=== PATIENT | female | born 1985 | race Caucasian/White ===

== ENCOUNTER 2020-04-06 16:57 | Outpatient (CLI) | payer OTHER, SELFPAY ==
[2020-04-06 18:38] LABS: Beta HCG Quantitative < 2.39 mIU/ML
== END 2020-04-06 16:58 | disposition home or self-care (01) ==
LOC: ANHLAB 16:59
PROVIDERS: Visit Provider Obstetrics & Gynecology
DX: N92.6 Irregular menstruation, unspecified (principal)
CPT/HCPCS: 36415; 84436; 84443; 84702

== ENCOUNTER 2020-05-01 17:07 | Outpatient (CLI) | payer OTHER, SELFPAY ==
[2020-05-01 18:32] LABS: Thyroid Stimulating Hormone 0.967 uIU/mL (0.465-4.680)
== END 2020-05-01 17:08 | disposition home or self-care (01) ==
LOC: ANHLAB 17:09
PROVIDERS: Visit Provider Obstetrics & Gynecology
DX: R94.6 Abnormal results of thyroid function studies (principal)
CPT/HCPCS: 36415; 84436; 84443

== ENCOUNTER 2020-08-14 16:25 | Outpatient (CLI) | payer OTHER, SELFPAY ==
--- NOTE | ~2020-08-14 | US_ITS ---
US pelvic complete w TV DATE: 08/14/2020 17:02 INDICATION: Excessive and frequent menstruation TECHNIQUE: Real time imaging via transabdominal and transvaginal approaches COMPARISON: None FINDINGS: The uterus measures 8.7 cm height and 6.4 cm transverse and 5.6 cm anteroposterior dimensio n. The central endometrial echo complex measures 5 mm. The right ovary measures 3.7 x 3.0 x 3.2 cm. There is a 2.7 x 2.6 x 3.0 cm cyst. The left ovary measures 3.6 x 2.6 x 1.9 cm. There is a 2.3 x 1.3 x 1.3 cm cyst. There is vascular flow to both ovaries. IMPRESSION: Bilateral ovarian cysts Reviewed, dictated and finalized at [facility] Reviewed, dictated and finalized at [facility]. IMPRESSION: Bilateral ovarian cysts
== END 2020-08-14 16:26 | disposition home or self-care (01) ==
LOC: ANHIMG 16:33
PROVIDERS: Visit Provider Obstetrics & Gynecology
DX: N83.201 Unspecified ovarian cyst, right side (principal); N83.202 Unspecified ovarian cyst, left side
CPT/HCPCS: 76830; 76856

== ENCOUNTER → 2020-09-19 01:03 | Outpatient (CLI) | payer OTHER, SELFPAY ==
[2020-09-19 20:53] LABS: SARS-CoV-2 RNA PCR Negative
== END ==
PROVIDERS: Visit Provider Obstetrics & Gynecology
DX: Z01.812 Encounter for preprocedural laboratory examination (principal); Z20.822 Contact with and (suspected) exposure to COVID-19
CPT/HCPCS: C9803; U0003; U0005

== ENCOUNTER 2020-09-23 00:23 | Day surgery (SDC) | payer OTHER, SELFPAY ==
[2020-09-14 11:13] VITALS: BMI 22.4
--- NOTE | 2020-09-22 23:28 | PM.IMHP ---
H&P: HPI History of Present Illness Date/Time: 09/22/20 23:28 Patient is a Para 2 with satisfied parity and desire for permanent sterilization. She is aware of the nonpermanent forms of contraception and risk benefit of each and she does not want to continue to take oral contraception. 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 She is aware of risk benefit and options of vasectomy and declines. She was having irregular periods which have resolved. No pelvic pain. She is aware of risk benefit of laparoscopic sterilization and the types of sterilization and decreased future risk of ovarian cancer with bilateral salpingectomy and risk of regret of permanent sterilization. Her questions have been answered. Chief Complaint: Desires sterilization. Review of Systems Review of Systems: All systems reviewed & are unremarkable except as noted in HPI and below Cardiovascular: Cardiovascular: Reports no additional cardiovascular complaints, Denies chest pain and Denies dyspnea Respiratory: Respiratory: Reports no additional respiratory complaints and Denies dyspnea Gastrointestinal: Gastrointestinal: Reports abdominal pain, Denies change in bowel habits, Denies diarrhea, Denies nausea and Denies vomiting Genitourinary: Genitourinary: Reports pelvic pain Musculoskeletal: Musculoskeletal: Reports back pain Integumentary/Breasts: Skin/Breast: Reports system reviewed and no additional complaints, except as docu Neurologic: Reports system reviewed and no additional complaints, except as documented PMFSH Past Medical History Medical History Asthma Miscarriage x2 Vaginal delivery x2 Surgical History Surgical History H/O dilation and curettage Family History Family History Grandparent Hypertension Family history of elevated blood lipids Family history of coronary artery disease, Onset Age: 72 Diabetes mellitus Other Family history of type 2 diabetes mellitus Social History Social History Smoking status: Never smoker Second hand tobacco smoke exposure: No Alcohol intake: current Drinks per week: 3 Substance use: never Substance use type: does not use Spiritual care concerns: No Meds Home Medications and Allergies Home Medications Medication Instructions Recorded Confirmed Type sertraline 50 mg tablet 50 mg PO DAILY #90 tablet 12/12/19 09/14/20 Rx norgestimate-ethinyl estradiol 1 tablet PO DAILY #84 tablet 09/03/20 09/14/20 Rx 0.18 mg/0.215mg/0.25mg-35 mcg(28)tablet loratadine [Claritin] 10 mg PO DAILY 09/14/20 09/14/20 History multivitamin 1 tablet PO DAILY 09/14/20 09/14/20 History Allergies Allergy/AdvReac Type Severity Reaction Status Date / Time No Known Allergies Allergy Verified 09/15/20 14:18 Exam Const: Orientation/consciousness: oriented to person and oriented to place HENMT: Head: normal to inspection Eyes: General: appearance normal, both eyes and all related structures Resp: Effort & Inspection: normal respiratory effort Auscultation: clear to auscultation bilaterally Cardio: Rate: regular rate Rhythm: regular rhythm GI: Inspection: normal to inspection GI Palp: No Rebound tenderness present : External Female Exam: normal external appearance Speculum Exam - Vagina: normal appearance of the vagina Speculum Exam - Cervix: normal appearance of the cervix Bimanual exam- vagina & uterus: uterine mobility normal, uterine shape normal and No Cervical tenderness present Bimanual Exam- Adnexa, other: no masses and No adnexal tenderness Neuro: General: oriented to person and oriented to place Cognition (Neuro): normal cognition Extrem: General: normal to inspection Psych: Appearance: grossly normal and well kempt Asses
[2020-09-23] VITALS (8 sets, daily range): BP systolic 108–135; BP diastolic 46–87; PULSE 65–90; RESP 12–16; TEMP 36.3–36.9; O2SAT 100
[2020-09-23] MEDS: ACETAMINOPHEN 500 MG TABLET 1000 MG PO (06:38)
--- NOTE | 2020-09-23 06:45 | WPDANESEPPF ---
Anes - Initial Pre Proc Eval Procedure: Operation Date: 09/23/20 07:30 Proposed Procedures p Laparoscopic Bilateral Salpingectomy - Palomo Narayanan MD Date/Time: 09/23/20 06:45 Surgeon: Palomo Narayanan MD Pre Op Diagnosis: irregular bleeding Patient Data Age: 34 Gender: F Height: 1.65 m Weight: 61 kg Allergies Allergy/AdvReac Type Severity Reaction Status Date / Time No Known Allergies Allergy Verified 09/23/20 06:39 Home Medications Medication Instructions Recorded Confirmed Type sertraline 50 mg tablet 50 mg PO DAILY #90 tablet 12/12/19 09/23/20 Rx norgestimate-ethinyl estradiol 1 tablet PO DAILY #84 tablet 09/03/20 09/23/20 Rx 0.18 mg/0.215mg/0.25mg-35 mcg()tablet loratadine [Claritin] 10 mg PO DAILY 09/14/20 09/23/20 History multivitamin 1 tablet PO DAILY 09/14/20 09/23/20 History Patient hx anesthesia problems: none Family hx anesthesia problems: none PMFSH Past Medical History Medical History Asthma Miscarriage x2 Vaginal delivery x2 Surgical History Surgical History H/O dilation and curettage Family History Family History Grandparent Hypertension Family history of elevated blood lipids Family history of coronary artery disease, Onset Age: 72 Diabetes mellitus Other Family history of type 2 diabetes mellitus Social History Social History Smoking status: Never smoker Second hand tobacco smoke exposure: No Alcohol intake: current Drinks per week: 3 Substance use: never Substance use type: does not use Living arrangements: with family Spiritual care concerns: No Anes - Eval Final PreProcedure Day of Procedure 09/23/20 06:45 Patient weight: normal Heart: regular rate and rhythm Lungs: clear to auscultation and normal air movement Airway: Mallampati scale class II Neurological: alert and oriented Last oral intake: >/= 8 hours ASA classification: II Emergent: no Anesthetic plan: proceed Anesthesia type and monitoring: general ETT and standard monitoring Informed Consent: The patient's anesthetic plan and its attendant risks and benefits were discussed with the patient/family/POA. Questions were solicited and answers provided to the satisfaction of the patient/family/POA.
[2020-09-23] MEDS: LACTATED RINGERS 1,000 ML 30 ML IV CONT ×2 (06:49→08:24)
[2020-09-23] MEDS: KETOROLAC 15 MG/ML VIAL (*BKC) IV PUSH (06:50)
--- NOTE | 2020-09-23 07:18 | WPDHPUPDATE1 ---
History and Physical Update Update Date/Time: 09/23/20 07:18 History and Physical has been reviewed, including an updated exam of the patient. There are NO changes in the patient's condition. Risks, benefits, and alternatives have been discussed and questions answered. Patient agrees to proceed with procedure.
[2020-09-23] MEDS: BUPIVACAINE HCL 0.5% PF 30 ML VIAL INFILTRATE (08:10)
--- NOTE | 2020-09-23 08:11 | SUR.OPER ---
EBL 5ML
--- NOTE | 2020-09-23 08:15 | PM.OP ---
Procedure Note - Brief Procedure Note - Brief Date of procedure: 09/23/20 Pre-op diagnosis: satisfied parity Post-op diagnosis: same Procedure performed: Laparoscopic bilateral salpingectomy Description of procedure: After informed consent was obtained patient was taken to the operating room and general endotracheal anesthesia was administered. She was placed in low lithotomy need prep prepped sterile fashion. Attention was turned to the vagina speculum inserted single-tooth tenaculum placed on anterior lip of the cervix. [place] uterine manipulator placed into the cervical canal. The speculum was removed. Attention was then turned to the abdomen. With sterile gloves a vertical incision was made at the umbilicus and a Veress needle was inserted into the abdomen confirmation into the abdomen obtained with free flow of fluid and normal peritoneal pressures. A pneumoperitoneum of 15 mm per mercury was obtained. The 5 mm port was inserted under laparoscopic visualization. Patient was placed in Trendelenburg position. Attention was turned to the left side of the abdomen and a 5 mm port was inserted under laparoscopic visualization. The pelvic organs were visualized. Attention was turned to the right side of the abdomen and another 5 mm port was inserted under laparoscopic visualization. Using the LigaSure the right fallopian tube was excised to near the entrance to the uterus. This was removed through the port. Attention was then turned to the left fallopian tube which was grabbed at the distal end and cauterized from the mesial salpinx to within a cm of the entrance to the entrance to the uterus. The fallopian tube was removed through the 5 mm port. Hemostasis was noted at both sites. Patient was taken out of Trendelenburg position the pneumoperitoneum was released and the skin incisions were closed in a subcuticular fashion with 4 O Vicryl. Anesthesia: GETA Surgeon: Palomo Narayanan MD Estimated blood loss (mL): 5 Urine output (mL): 20 Drains: No Packing: No Pathology: yes (right and left fallopian tubes) Complications: No immediate complications Condition: stable Disposition: PACU Findings: Normal appearing boggy uterus, normal fallopian tubes and ovaries bilaterally, normal appearing appendix and gallbladder.
--- NOTE | 2020-09-23 08:37 | PM.PROC ---
Procedure Note - Detailed Date of procedure: 09/23/20 Pre-op diagnosis: satisfied parity After informed consent was obtained patient was taken to the operating room and general endotracheal anesthesia was administered. She was placed in low lithotomy need prep prepped sterile fashion. Attention was turned to the vagina speculum inserted single-tooth tenaculum placed on anterior lip of the cervix. [place] uterine manipulator placed into the cervical canal. The speculum was removed. Attention was then turned to the abdomen. With sterile gloves a vertical incision was made at the umbilicus and a Veress needle was inserted into the abdomen confirmation into the abdomen obtained with free flow of fluid and normal peritoneal pressures. A pneumoperitoneum of 15 mm per mercury was obtained. The 5 mm port was inserted under laparoscopic visualization. Patient was placed in Trendelenburg position. Attention was turned to the left side of the abdomen and a 5 mm port was inserted under laparoscopic visualization. The pelvic organs were visualized. Attention was turned to the right side of the abdomen and another 5 mm port was inserted under laparoscopic visualization. Using the LigaSure the right fallopian tube was excised to near the entrance to the uterus. This was removed through the port. Attention was then turned to the left fallopian tube which was grabbed at the distal end and cauterized from the mesial salpinx to within a cm of the entrance to the entrance to the uterus. The fallopian tube was removed through the 5 mm port. Hemostasis was noted at both sites. Patient was taken out of Trendelenburg position the pneumoperitoneum was released and the skin incisions were closed in a subcuticular fashion with 4 O Vicryl. Post-op diagnosis: same Surgeon: Palomo Narayanan MD
--- NOTE | 2020-09-23 12:02 | SUR.PHASEII ---
1030 pt getting ready to be discharged and noticed her rt abdomen incision has some swelling, looks like a hematoma. notified nakia bhakta on case with dr becerra, bailey came and looked at it, hematoma noted, instructed pt to apply ice pack for the rest of the day. pt to notify dr becerra if swelling increases. 1125 dr becerra notified of hematoma, she will call pt
== END 2020-09-23 10:50 | disposition home or self-care (01) ==
PROVIDERS: Visit Provider Obstetrics & Gynecology
PROC: 0UDB8ZZ Extraction of Endometrium, Via Natural or Artificial Opening Endoscopic (ICD-10-PCS; CPT 58558; principal; 2020-09-23 07:30)
DX: Z30.2 Encounter for sterilization (principal); N83.8 Other noninflammatory disorders of ovary, fallopian tube and broad ligament; J45.909 Unspecified asthma, uncomplicated; F32.9 Major depressive disorder, single episode, unspecified; F41.9 Anxiety disorder, unspecified
CPT/HCPCS: 58661; 88302; A9270; C9803; J0330; J1100; J1885; J2250; J2405; J2704; J3010; J7030; J7120; U0003; U0005